=== PATIENT | male | born 1940 | race Hispanic/Latino ===

== ENCOUNTER 2022-05-02 14:53 | Inpatient (IN) | payer SELFPAY ==
[~2022-05-02] VITALS: Ht 172.7 cm; Wt 113.4 kg
[2022-05-02] MEDS ORDERED: FUROSEMIDE INJ 10 MG/ML 4 ML VIAL IV ONE (15:30)
[2022-05-02] MEDS ORDERED: ASPIRIN 81 MG CHEW TAB PO ONE ×2 (15:45)
[2022-05-02] MEDS ORDERED: Morphine 2mg Syringe 2 MG/ML SYR IV PRN (15:45)
[2022-05-02] MEDS ORDERED: ONDANSETRON HCL INJ 2MG/ML 2ML 2 MG/ML VIAL IV PRN (15:45)
[2022-05-02] MEDS ORDERED: KETOROLAC TROMETHAMINE 30 MG/ML VIAL IV STA (16:28)
[2022-05-02] MEDS ORDERED: ACETAMINOPHEN 325 MG TAB PO ONE (16:30)
[2022-05-02] MEDS ORDERED: LACTATED RINGER'S 500 ML IV ONE ×2 (16:30→16:55)
[2022-05-02] MEDS ORDERED: LABETALOL HCL 5 MG/ML 20ML VIAL IV STA (16:47)
[2022-05-02] MEDS ORDERED: ACETAMINOPHEN 325 MG TAB ONE (16:57)
[2022-05-02] MEDS ORDERED: KETOROLAC TROMETHAMINE 30 MG/ML VIAL ONE (16:57)
[2022-05-02] MEDS ORDERED: LACTATED RINGER'S 1,000 ML ONE (16:57)
[2022-05-02] MEDS ORDERED: CEFTRIAXONE 1 GM VIAL ONE (16:58)
[2022-05-02 18:38] VITALS: BP 162/103
[2022-05-02] MEDS: METOPROLOL TARTRATE INJ 1 MG/ML VIAL IV PRN (19:05)
[2022-05-02 19:37] LABS: CREATINE KINASE MB 5.8 ng/mL (0-5.0)
[2022-05-02] MEDS ORDERED: IRBESARTAN150 MG PO (19:39)
[2022-05-02] MEDS ORDERED: NPH SQ ×2 (19:39)
[2022-05-02] MEDS ORDERED: HYDROCHLOROTHIA25 MG PO (19:39)
[2022-05-02] MEDS ORDERED: MOTRIN200 MG PO (19:39)
[2022-05-02] MEDS ORDERED: PROPRANOLOL HCL40 MG PO (19:39)
[2022-05-02] MEDS ORDERED: DEXTROSE 50% SYRINGE 50 ML IV PRN (20:00)
[2022-05-02] MEDS: METOPROLOL TARTRATE 50 MG TAB PO SCH (20:21)
[2022-05-02] MEDS: ATORVASTATIN 40 MG TAB PO SCH (20:21)
[2022-05-02] MEDS: INSULIN LISPRO 100 UNIT/1 ML 3ML VIAL SQ SCH (20:22)
[2022-05-02 20:24] VITALS: BP 106/77
[2022-05-02 20:33] VITALS: BP 106/77
[2022-05-02 20:41] VITALS: BP 106/77
[2022-05-03] VITALS (8 sets, daily range): BP systolic 116–167; BP diastolic 84–97
[2022-05-03] MEDS: METOPROLOL TARTRATE INJ 1 MG/ML VIAL IV PRN ×3 (04:41→17:30)
[2022-05-03 07:16] LABS: BASOPHILS # (AUTO) 0.1 (0.0-0.1); BASOPHILS % 0.5 % (0.0-1.0); EOSINOPHILS # (AUTO) 0.1 (0.0-0.4); EOSINOPHILS % 1.2 % (0.0-6.0); HEMATOCRIT 43.7 % (38.2-49.6); HEMOGLOBIN 14.6 g/dL (14.0-18.0); LYMPHOCYTES % 19.9 % (18.0-39.1); MEAN CORPUSCULAR HEMOGLOBIN 30.7 pg (28-32); MEAN CORPUSCULAR HGB CONC 33.4 g/dL (31-35); MEAN CORPUSCULAR VOLUME 91.8 fL (81-99); MONOCYTES # (AUTO) 1.4 (0.2-0.8); MONOCYTES % 13.3 % (4.4-11.3); NEUTROPHILS # (AUTO) 6.6 (2.1-6.9); NEUTROPHILS % 64.6 % (38.7-80.0); PLATELET COUNT 263 x10e3/uL (140-360); RED BLOOD COUNT 4.76 x10e6/uL (4.3-5.7); RED CELL DISTRIBUTION WIDTH 12.4 % (11.7-14.4)
[2022-05-03] MEDS: INSULIN LISPRO 100 UNIT/1 ML 3ML VIAL SQ SCH ×4 (07:30→21:30)
[2022-05-03 07:49] LABS: ANION GAP 14.7 mmol/L (8-16); CALCIUM 8.6 mg/dL (8.4-10.2); CREATININE, SERUM 1.64 mg/dL (0.72-1.25); POTASSIUM 3.7 mmol/L (3.5-5.1)
[2022-05-03 08:44] LABS: CREATINE KINASE MB 5.1 ng/mL (0-5.0)
[2022-05-03] MEDS: ASPIRIN 81 MG CHEW TAB PO SCH (09:00)
[2022-05-03] MEDS: METOPROLOL TARTRATE 50 MG TAB PO SCH ×2 (10:08→16:30)
[2022-05-03] MEDS: NIRMATRELVIR/RITONAVIR 1 EACH TABLET PO SCH ×2 (12:14→21:30)
[2022-05-03] MEDS: GUAIFENESIN/CODEINE 5 ML LIQD PO PRN ×2 (12:21→21:30)
[2022-05-03 14:48] LABS: CREATINE KINASE MB 5.2 ng/mL (0-5.0)
[2022-05-03] MEDS: ENOXAPARIN SOD INJ 40 MG/0.4 ML SYR SC SCH (17:16)
[2022-05-03] MEDS: ATORVASTATIN 40 MG TAB PO SCH (21:30)
[2022-05-04] VITALS (8 sets, daily range): BP systolic 114–165; BP diastolic 74–136
[2022-05-04 06:16] LABS: BASOPHILS # (AUTO) 0.1 (0.0-0.1); BASOPHILS % 0.7 % (0.0-1.0); EOSINOPHILS # (AUTO) 0.1 (0.0-0.4); EOSINOPHILS % 0.9 % (0.0-6.0); HEMATOCRIT 42.6 % (38.2-49.6); LYMPHOCYTES # (AUTO) 1.4 (1.0-3.2); LYMPHOCYTES % 18.7 % (18.0-39.1); MEAN CORPUSCULAR HEMOGLOBIN 30.2 pg (28-32); MEAN CORPUSCULAR HGB CONC 32.9 g/dL (31-35); MONOCYTES # (AUTO) 1.1 (0.2-0.8); MONOCYTES % 14.9 % (4.4-11.3); NEUTROPHILS # (AUTO) 4.9 (2.1-6.9); NEUTROPHILS % 64.4 % (38.7-80.0); PLATELET COUNT 257 x10e3/uL (140-360); RED BLOOD COUNT 4.63 x10e6/uL (4.3-5.7); RED CELL DISTRIBUTION WIDTH 12.4 % (11.7-14.4)
[2022-05-04] MEDS: METOPROLOL TARTRATE INJ 1 MG/ML VIAL IV PRN (06:28)
[2022-05-04 06:36] LABS: ANION GAP 15.6 mmol/L (8-16); CALCIUM 8.2 mg/dL (8.4-10.2); CREATININE, SERUM 1.56 mg/dL (0.72-1.25); POTASSIUM 3.6 mmol/L (3.5-5.1)
[2022-05-04] MEDS: ASPIRIN 81 MG CHEW TAB PO SCH (09:35)
[2022-05-04] MEDS: METOPROLOL TARTRATE 50 MG TAB PO SCH ×2 (09:35→17:02)
[2022-05-04] MEDS: NIRMATRELVIR/RITONAVIR 1 EACH TABLET PO SCH ×2 (09:36→21:42)
[2022-05-04] MEDS: INSULIN LISPRO 100 UNIT/1 ML 3ML VIAL SQ SCH ×4 (09:40→21:00)
[2022-05-04] MEDS: ENOXAPARIN SOD INJ 40 MG/0.4 ML SYR SC SCH (17:03)
[2022-05-04] MEDS: ATORVASTATIN 40 MG TAB PO SCH (21:42)
[2022-05-05] MEDS: METOPROLOL TARTRATE INJ 1 MG/ML VIAL IV PRN (04:43)
[2022-05-05 05:10] VITALS: BP 162/84
[2022-05-05 07:59] VITALS: BP 169/103
[2022-05-05 08:06] LABS: BASOPHILS % 0.6 % (0.0-1.0); EOSINOPHILS # (AUTO) 0.1 (0.0-0.4); EOSINOPHILS % 0.9 % (0.0-6.0); HEMOGLOBIN 14.8 g/dL (14.0-18.0); LYMPHOCYTES # (AUTO) 2.3 (1.0-3.2); LYMPHOCYTES % 35.9 % (18.0-39.1); MEAN CORPUSCULAR HEMOGLOBIN 30.4 pg (28-32); MEAN CORPUSCULAR HGB CONC 32.2 g/dL (31-35); MEAN CORPUSCULAR VOLUME 94.5 fL (81-99); MONOCYTES # (AUTO) 0.9 (0.2-0.8); MONOCYTES % 13.5 % (4.4-11.3); NEUTROPHILS # (AUTO) 3.1 (2.1-6.9); NEUTROPHILS % 48.8 % (38.7-80.0); PLATELET COUNT 264 x10e3/uL (140-360); RED BLOOD COUNT 4.87 x10e6/uL (4.3-5.7); RED CELL DISTRIBUTION WIDTH 12.4 % (11.7-14.4)
[2022-05-05] MEDS: ASPIRIN 81 MG CHEW TAB PO SCH (08:22)
[2022-05-05] MEDS: METOPROLOL TARTRATE 50 MG TAB PO SCH ×2 (08:23→16:34)
[2022-05-05 08:25] VITALS: BP 169/103
[2022-05-05 08:27] LABS: ANION GAP 15.1 mmol/L (8-16); CALCIUM 8.5 mg/dL (8.4-10.2); CREATININE, SERUM 1.27 mg/dL (0.72-1.25); POTASSIUM 4.1 mmol/L (3.5-5.1)
[2022-05-05] MEDS: NIRMATRELVIR/RITONAVIR 1 EACH TABLET PO SCH ×2 (08:28→22:48)
[2022-05-05] MEDS: INSULIN LISPRO 100 UNIT/1 ML 3ML VIAL SQ SCH ×4 (08:32→21:00)
[2022-05-05 12:08] VITALS: BP 154/78
[2022-05-05 15:59] VITALS: BP 137/100
[2022-05-05] MEDS: ENOXAPARIN SOD INJ 40 MG/0.4 ML SYR SC SCH (16:34)
[2022-05-05] MEDS ORDERED: ACETAMINOPHEN 325 MG TAB PO PRN (19:15)
[2022-05-05 20:00] VITALS: BP 173/87
[2022-05-05] MEDS: ATORVASTATIN 40 MG TAB PO SCH (22:48)
[2022-05-05] MEDS: GUAIFENESIN/CODEINE 5 ML LIQD PO PRN (23:30)
[2022-05-06] VITALS: BP 103/74
[2022-05-06] MEDS ORDERED: ZIPRASIDONE 20 MG VIAL IM PRN (02:45)
[2022-05-06 04:00] VITALS: BP 100/71
[2022-05-06 08:46] LABS: BASOPHILS % 0.2 % (0.0-1.0); EOSINOPHILS # (AUTO) 0.1 (0.0-0.4); EOSINOPHILS % 0.8 % (0.0-6.0); HEMATOCRIT 46.2 % (38.2-49.6); HEMOGLOBIN 15.3 g/dL (14.0-18.0); LYMPHOCYTES # (AUTO) 1.9 (1.0-3.2); MEAN CORPUSCULAR HEMOGLOBIN 30.4 pg (28-32); MEAN CORPUSCULAR HGB CONC 33.1 g/dL (31-35); MEAN CORPUSCULAR VOLUME 91.8 fL (81-99); MONOCYTES # (AUTO) 0.8 (0.2-0.8); MONOCYTES % 8.9 % (4.4-11.3); NEUTROPHILS # (AUTO) 5.6 (2.1-6.9); NEUTROPHILS % 66.7 % (38.7-80.0); PLATELET COUNT 269 x10e3/uL (140-360); RED BLOOD COUNT 5.03 x10e6/uL (4.3-5.7); RED CELL DISTRIBUTION WIDTH 12.3 % (11.7-14.4)
[2022-05-06] MEDS: ASPIRIN 81 MG CHEW TAB PO SCH (08:47)
[2022-05-06] MEDS: METOPROLOL TARTRATE 50 MG TAB PO SCH (08:50)
[2022-05-06] MEDS: NIRMATRELVIR/RITONAVIR 1 EACH TABLET PO SCH (08:50)
[2022-05-06] MEDS: INSULIN LISPRO 100 UNIT/1 ML 3ML VIAL SQ SCH ×2 (08:51→11:30)
[2022-05-06 09:06] LABS: ALBUMIN/GLOBULIN RATIO 0.8 (0.8-2.0); ANION GAP 16.3 mmol/L (8-16); CALCIUM 8.1 mg/dL (8.4-10.2); CREATININE, SERUM 1.33 mg/dL (0.72-1.25); POTASSIUM 4.3 mmol/L (3.5-5.1)
[2022-05-06 09:15] VITALS: BP 122/89
[2022-05-06 11:22] VITALS: BP 143/84
[2022-05-06] MEDS ORDERED: METOPROLOL TART50 MG PO (12:36)
[2022-05-06] MEDS ORDERED: PAXLOVID CO-PA1 EACH PO (12:40)
[2022-05-06] MEDS ORDERED: ASPIRIN CHEW81 MG PO (12:40)
[2022-05-06] MEDS ORDERED: LIPITOR20 MG PO (12:41)
== END 2022-05-06 14:37 | disposition home or self-care (01) | DRG 178 ==
LOC: FSED 14:59 → ERHOLD 15:46 → MED/SURG3 18:27 → OBSVTOIN 05-03 09:14
PROVIDERS: ADMIT Internal Medicine; ATTEND Internal Medicine
PROC: 8E0ZXY6 Isolation (ICD-10-PCS; principal; 2022-05-03)
PROC: XW0DXF5 Introduction of Other New Technology Therapeutic Substance into Mouth and Pharynx, External Approach, New Technology Group 5 (ICD-10-PCS; 2022-05-03)
DX: U07.1 COVID-19 (principal); I13.0 Hypertensive heart and chronic kidney disease with heart failure and stage 1 through stage 4 chronic kidney disease, or unspecified chronic kidney disease; I47.1 Supraventricular tachycardia; N17.9 Acute kidney failure, unspecified; R07.9 Chest pain, unspecified; E03.9 Hypothyroidism, unspecified; I50.9 Heart failure, unspecified; M25.519 Pain in unspecified shoulder; E11.22 Type 2 diabetes mellitus with diabetic chronic kidney disease; N18.30 Chronic kidney disease, stage 3 unspecified; E11.65 Type 2 diabetes mellitus with hyperglycemia; Z79.82 Long term (current) use of aspirin
CPT/HCPCS: 36415; 71045; 78580; 80048; 80053; 82550; 82553; 82948; 83036; 83605; 83880; 84443; 84484; 85025; 85610; 87040; 93005; 93306; 99251; 99284; A9540; G0378; J0456; J0696; J1650; J1885; J1940; J2405; J3486; J7050; J7121; J7799